=== PATIENT | female | born 1985 | race Caucasian/White ===

== ENCOUNTER → 2017-04-06 | Outpatient (CLI) | payer BC ==
[~2017-04-06] MED LIST: OMNIPAQUE 350 MG/ML, 100ML BOTTLE ONE
== END | disposition home or self-care (01) ==
LOC: CFH 08:30
PROVIDERS: ATTEND Nurse Practitioner Family
DX: N80.9 Endometriosis, unspecified (principal); G89.29 Other chronic pain; Z90.49 Acquired absence of other specified parts of digestive tract
CPT/HCPCS: 74177; Q9967